=== PATIENT | female | born 1985 | race Caucasian/White ===

== ENCOUNTER 2016-07-24 21:52 | Emergency (ER) | payer SELFPAY ==
[~2016-07-24] VITALS: Ht 160 cm; Wt 85.0 kg
[2016-07-24 21:53] VITALS: BP 131/86; PULSE 86; RESP 16; TEMP 98.1; O2SAT 96
[2016-07-24 23:07] VITALS: BP 113/73; PULSE 85; RESP 18; O2SAT 83; O2SAT 98
[2016-07-24] MEDS ORDERED: SODIUM CHLORIDE 0.9% FLUSH 5 ML FLUSH IVF PRN (23:30)
--- NOTE | 2016-07-24 23:47 | PD ---
HPI Chief Complaint: Afterschool Problem/Complaint Time Seen by Provider: 23:22 Travel History International Travel<30 days: No Contact w/Intl Traveler<30days: No Traveled to known affect area: No History of Present Illness HPI 31-year-old female , LMP 05/26/16, here for evaluation of vaginal bleeding. The patient reports that she was at a hospital in [place] yesterday and had a beta hCG of 37. She reports that there was an ultrasound of her pelvis at that time which did not show much according to the patient. She reports that she has had some increased bleeding today and noticed a large clot. She is concerned that she may be having a miscarriage. She was having some abdominal/ pelvic cramping earlier today, however currently is denying any abdomen or pelvic pain. PFSH Past Medical History Tetanus Vaccination: < 5 Years Influenza Vaccination: No ?: LMP: 05/26/16 : 1 Miscarriage: 1 Past Surgical History Appendectomy: Yes Social History Alcohol Use: Yes (OCC) Tobacco Use: Yes Substance Use: Yes (WEED) Allergies-Medications (Allergen,Severity, Reaction): Coded Allergies: Penicillin (Verified Allergy, Mild, RASH, 07/24/16) Reported Meds & Prescriptions Reported Meds & Active Scripts Active No Active Prescriptions or Reported Medications Review of Systems Except as stated in HPI: all other systems reviewed are Neg Physical Exam Narrative GENERAL: Well-developed, well-nourished, comfortable, no distress. SKIN: Warm and dry. No pallor. HEAD: Atraumatic. Normocephalic. EYES: Pupils equal and round. No scleral icterus. No injection or drainage. ENT: Mucous membranes pink and moist. CARDIOVASCULAR: Regular rate and rhythm. RESPIRATORY: No accessory muscle use. Clear to auscultation. Breath sounds equal bilaterally. GASTROINTESTINAL: Abdomen soft, non-tender, nondistended. SOCIAL MEDIA STRATEGIST: Exam performed in the presence of a female nurse. Normal external genitalia. Scant blood in vaginal vault coming from os. No vaginal lacerations. MUSCULOSKELETAL: No obvious deformities. No clubbing. No cyanosis. No edema. NEUROLOGICAL: Awake and alert. No obvious cranial nerve deficits. Motor grossly within normal limits. Normal speech. PSYCHIATRIC: Appropriate mood and affect; insight and judgment normal. Data Data Last Documented VS Vital Signs Date Time Temp Pulse Resp B/P Pulse Ox O2 Delivery O2 Flow Rate FiO2 3/10/17 23:07 87 18 07/24/16 23:07 113/73 83 Room Air 07/24/16 21:53 98.1 Orders Beta Hcg (Quant/Titer) (07/24/16 23:22) Complete Blood Count With Diff (07/24/16 23:22) Comprehensive Metabolic Panel (07/24/16 23:22) Prothrombin Time / Inr (Pt) (07/24/16 23:22) Act Partial Throm Time (Ptt) (07/24/16 23:22) Urinalysis - C+S If Indicated (07/24/16 23:22) Iv Access Insert/Monitor (07/24/16 23:22) Ecg Monitoring (07/24/16 23:22) Oximetry (07/24/16 23:22) Sodium Chloride 0.9% Flush (Ns Flush) (07/24/16 23:30) Type And Screen (07/24/16 23:22) Urine Culture (07/24/16 23:47) Labs Laboratory Tests Test 07/24/16 07/24/16 23:29 23:47 White Blood Count 13.6 TH/MM3 Red Blood Count 4.74 MIL/MM3 Hemoglobin 13.4 GM/DL Hematocrit 39.4 % Mean Corpuscular Volume 83.0 FL Mean Corpuscular Hemoglobin 28.3 PG Mean Corpuscular Hemoglobin 34.0 % Concent Red Cell Distribution Width 13.1 % Platelet Count 325 TH/MM3 Mean Platelet Volume 8.4 FL Neutrophils (%) (Auto) 72.1 % Lymphocytes (%) (Auto) 19.2 % Monocytes (%) (Auto) 7.3 % Eosinophils (%) (Auto) 0.7 % Basophils (%) (Auto) 0.7 % Neutrophils # (Auto) 9.8 TH/MM3 Lymphocytes # (Auto) 2.6 TH/MM3 Monocytes # (Auto) 1.0 TH/MM3 Eosinophils # (Auto) 0.1 TH/MM3 Basophils # (Auto) 0.1 TH/MM3 CBC Comment DIFF FINAL Differential Comment Prothrombin Time 10.9 SEC Prothromb Time International 1.0 RATIO Ratio Activated Partial 26.4 SEC Thromboplast Time Sodium Level 142 MEQ/L Potassium Level 3.4 MEQ/L Chloride Level 109 MEQ/L Carbon Dioxide Level 23.2 MEQ/L Anion Gap 10 MEQ/L Blood Urea Nitrogen 13 MG/DL Creatinine 0.75 MG/DL Estimat Glomerular Filtration 90 ML/MIN Rate Random Glucose 90 MG/DL Calcium Level 8.9 MG/DL Total Bilirubin 0.4 MG/DL Aspartate Amino Transf 23 U/L (AST/SGOT) Alanine Aminotransferase 39 U/L (ALT/SGPT) Alkaline Phosphatase 87 U/L Total Protein 7.7 GM/DL Albumin 4.3 GM/DL Human Chorionic Gonadotropin, 20 MIU/ML Quant Blood Type B POSITIVE Antibody Screen NEGATIVE Blood Bank Comment Urine Color YELLOW Urine Turbidity HAZY Urine pH 5.5 Urine Specific [place] 1.028 Urine Protein 30 mg/dL Urine Glucose (UA) NEG mg/dL Urine Ketones NEG mg/dL Urine Occult Blood LARGE Urine Nitrite NEG Urine Bilirubin NEG Urine Urobilinogen LESS THAN 2.0 MG/DL Urine Leukocyte Esterase SMALL Urine RBC /hpf Urine WBC 24 /hpf Urine Squamous Epithelial 3 /hpf Cells Urine Bacteria OCC /hpf Urine Mucus FEW /lpf Microscopic Urinalysis Comment CULTURE INDICATED MDM Medical Decision Making Medical Screen Exam Complete: Yes Emergency Medical Condition: Yes Differential Diagnosis Spontaneous , threatened , inevitable , ectopic Narrative Course Vital signs show heart rate 86, blood pressure 131/86, pulse ox 96% on room air , oral temp of 98.1F. CBC is unremarkable. CMP is unremarkable. UA shows large occult blood, small leukocyte esterase, 24 WBCs, occasional bacteria, culture indicated. This is likely from vaginal bleeding/spontaneous . She has no urinary symptoms. Beta hCG is 20. Blood type is B+. The patient reports that she went to a hospital in [place] yesterday and had a beta hCG that was 37. Today it is 20. She is having a miscarriage. Her abdominal exam is benign. There are no peritoneal signs. I do not believe that this is an ectopic . The patient is stable for discharge home with outpatient follow-up with an [facility] doctor this week. She was informed on when to return to the emergency department. She verbalizes understanding and agreement with plan. Diagnosis Primary Impression: Spontaneous Referrals: [facility] 1 week Additional Instructions: Follow-up with an [facility] doctor this week. Return to the emergency department for worsening symptoms or any other concerns. Scripts No Active Prescriptions or Reported Meds Disposition: DISCHARGE HOME Condition: Stable Nathan Phipps MD Jul 24, 2016 23:47
[2016-07-24 23:59] LABS: AUTOMATED NEUTROPHIL # 9.8 TH/MM3 (1.8-7.7); BASOPHIL # 0.1 TH/MM3 (0-0.2); BASOPHIL % 0.7 % (0.0-2.0); EOSINOPHIL # 0.1 TH/MM3 (0-0.4); EOSINOPHIL % 0.7 % (0.0-4.0); HEMATOCRIT 39.4 % (35.0-46.0); HEMO FLAGS DIFF FINAL; LYMPH % 19.2 % (9.0-44.0); LYMPHOCYTE # 2.6 TH/MM3 (1.0-4.8); MEAN CORPUSCULAR HEMOGLOBIN 28.3 PG (27.0-34.0); MONO % 7.3 % (0.0-8.0); NEUT % 72.1 % (16.0-70.0); PLATELET COUNT 325 TH/MM3 (150-450); RED BLOOD COUNT 4.74 MIL/MM3 (4.00-5.30); RED CELL DISTRIBUTION WIDTH 13.1 % (11.6-17.2); WHITE BLOOD COUNT 13.6 TH/MM3 (4.0-11.0)
[2016-07-25 00:12] LABS: APTT (PATIENT) 26.4 SEC (24.3-30.1); PROTHROMBIN TIME - PATIENT 10.9 SEC (9.8-11.6)
[2016-07-25 00:16] LABS: BACTERIA, URINE OCC /hpf; BLOOD, URINE LARGE (NEG); COMMENT (UR) CULTURE INDICATED; CULTURE IF INDICATED CULTURE INDICATED; GLUCOSE,URINE NEG (NEG); KETONE, URINE NEG (NEG); MUCUS URINE FEW /lpf (OCC); NITRITE,URINE NEG (NEG); PH, URINE 5.5 (5.0-8.5); SQUAMOUS EPITHELIAL CELL URINE 3 /hpf (0-5); URINE COLOR YELLOW (YELLW/STRAW)
[2016-07-25 00:22] LABS: ALT (GPT) 39 U/L (10-53); ANION GAP 10 MEQ/L (5-15); AST (GOT) 23 U/L (15-37); BICARBONATE 23.2 MEQ/L (21.0-32.0); BLOOD UREA NITROGEN 13 MG/DL (7-18); CHLORIDE 109 MEQ/L (98-107); GLOMERULAR FILTRATION RATE 90 ML/MIN (>89); POTASSIUM 3.4 MEQ/L (3.5-5.1); SODIUM (NA) 142 MEQ/L (136-145)
[2016-07-25 00:26] LABS: ALKALINE PHOSPHATASE 87 U/L (45-117); BETA HCG QUANT 20 MIU/ML (0-5); TOTAL BILIRUBIN ADULT 0.4 MG/DL (0.2-1.0)
[2016-07-25 01:40] VITALS: BP 128/66; PULSE 85; RESP 18; TEMP 98.4; O2SAT 100
== END 2016-07-25 02:03 | disposition home or self-care (01) ==
LOC: NEPE 21:52
DX: O03.9 Complete or unspecified spontaneous abortion without complication (principal); Z72.0 Tobacco use
CPT/HCPCS: 80053; 81001; 84702; 85025; 85610; 85730; 86850; 86900; 86901; 87086; 99284